=== PATIENT | female | born 1950 | race Caucasian/White ===

== ENCOUNTER 2017-01-06 18:07 | Emergency (ER) | payer OTHER ==
[~2017-01-06] VITALS: Ht 160 cm; Wt 84.4 kg
[2017-01-06 19:18] VITALS: BP 155/69
== END 2017-01-06 19:18 | disposition home or self-care (01) ==
LOC: ED 18:07
DX: S39.012A Strain of muscle, fascia and tendon of lower back, initial encounter (principal); E11.9 Type 2 diabetes mellitus without complications; I10 Essential (primary) hypertension; E78.5 Hyperlipidemia, unspecified; Z79.84 Long term (current) use of oral hypoglycemic drugs; Z79.899 Other long term (current) drug therapy; X58.XXXA Exposure to other specified factors, initial encounter; Y93.89 Activity, other specified; Y99.8 Other external cause status; Y92.89 Other specified places as the place of occurrence of the external cause
CPT/HCPCS: 20552; J2001

== ENCOUNTER 2017-09-05 20:53 | Emergency (ER) | payer OTHER ==
[~2017-09-05] VITALS: Ht 157.5 cm; Wt 83.5 kg
[2017-09-05 20:59] VITALS: Ht 157.5 cm; Wt 83.5 kg
[2017-09-05 22:56] LABS: PLATELET COUNT 341 x10^3mcL (130-400); RED CELL DISTRIBUTION WIDTH 13.1 % (11.5-14.5)
[2017-09-05 22:58] LABS: BASOPHIL % 3.9 % (0-2)
[2017-09-05 23:05] LABS: CALCIUM 8.6 mg/dL (8.5-10.1); CHLORIDE SERUM 103 mmol/L (98-107); CREATININE SERUM 0.8 mg/dL (0.6-1.0); GFR1 > 60 mL/min; GLUCOSE SERUM 132 mg/dL (74-106); SODIUM SERUM 140 mmol/L (136-145)
[2017-09-05 23:15] LABS: ALBUMIN 3.5 g/dL (3.4-5.0); ALKALINE PHOSPHATASE 82 U/L (46-116); ALT/SGPT 57 U/L (14-59); AST/SGOT 20 U/L (15-37); BILIRUBIN TOTAL 0.4 mg/dL (0.20-1.00); TOTAL PROTEIN, SERUM 7.2 g/dL (6.4-8.2)
[2017-09-05 23:21] LABS: CHOLESTEROL 210 mg/dL (<200)
[2017-09-06 02:07] VITALS: BP 140/80
== END 2017-09-06 02:07 | disposition home or self-care (01) ==
LOC: ED 20:53
PROVIDERS: Specialist
DX: S22.49XA Multiple fractures of ribs, unspecified side, initial encounter for closed fracture (principal); X58.XXXA Exposure to other specified factors, initial encounter; Y93.89 Activity, other specified; Y92.89 Other specified places as the place of occurrence of the external cause; Y99.8 Other external cause status
CPT/HCPCS: 36415; 72072; 83880; G0480; J1885; J3010; Q0162

== ENCOUNTER 2019-01-21 10:14 | Inpatient (IN) | payer OTHER ==
[~2019-01-21] VITALS: Ht 160 cm; Wt 80.7 kg
[2019-01-21 11:50] LABS: BASOPHIL % 0.3 % (0-2); PLATELET COUNT 275 x10^3mcL (130-400)
[2019-01-21 11:57] LABS: CALCIUM 8.7 mg/dL (8.5-10.1); CARBON DIOXIDE 30.7 mmol/L (21-32); CHLORIDE SERUM 102 mmol/L (98-107); CREATININE SERUM 0.8 mg/dL (0.6-1.0); GFR1 > 60 mL/min; GLUCOSE SERUM 115 mg/dL (74-106); POTASSIUM SERUM 3.6 mmol/L (3.5-5.1); SODIUM SERUM 140 mmol/L (136-145)
[2019-01-21 11:59] LABS: ALBUMIN 3.8 g/dL (3.4-5.0); ALKALINE PHOSPHATASE 97 U/L (46-116); ALT/SGPT 36 U/L (14-59); AST/SGOT 24 U/L (15-37); BILIRUBIN TOTAL 0.4 mg/dL (0.20-1.00); TOTAL PROTEIN, SERUM 7.3 g/dL (6.4-8.2)
[2019-01-21 13:11] VITALS: BP 169/74
[2019-01-21 13:17] VITALS: Ht 160 cm; Wt 80.7 kg
[2019-01-21 14:55] LABS: CHOLESTEROL/HDL RATIO 4.3; PHOSPHOROUS 3.7 mg/dL (2.5-4.9)
[2019-01-21 17:31] VITALS: BP 158/72
[2019-01-21 21:12] VITALS: BP 144/59
[2019-01-22 05:47] VITALS: BP 147/71
[2019-01-22 06:22] LABS: BASOPHIL % 0.3 % (0-2); PLATELET COUNT 283 x10^3mcL (130-400); RED CELL DISTRIBUTION WIDTH 14.1 % (11.5-14.5)
[2019-01-22 06:28] LABS: CALCIUM 8.5 mg/dL (8.5-10.1); CARBON DIOXIDE 28.1 mmol/L (21-32); CHLORIDE SERUM 101 mmol/L (98-107); CREATININE SERUM 0.7 mg/dL (0.6-1.0); GFR1 > 60 mL/min; GLUCOSE SERUM 130 mg/dL (74-106); MAGNESIUM 2.2 mg/dL (1.8-2.4); PHOSPHOROUS 3.6 mg/dL (2.5-4.9); POTASSIUM SERUM 3.4 mmol/L (3.5-5.1); SODIUM SERUM 138 mmol/L (136-145)
[2019-01-22 09:45] VITALS: BP 156/72
[2019-01-22 17:45] VITALS: BP 135/56
[2019-01-22 21:00] VITALS: BP 134/65
[2019-01-23 07:20] LABS: CALCIUM 8.4 mg/dL (8.5-10.1); CARBON DIOXIDE 23.7 mmol/L (21-32); CHLORIDE SERUM 101 mmol/L (98-107); CREATININE SERUM 0.6 mg/dL (0.6-1.0); GFR1 > 60 mL/min; GLUCOSE SERUM 124 mg/dL (74-106); MAGNESIUM 2.2 mg/dL (1.8-2.4); PHOSPHOROUS 3.1 mg/dL (2.5-4.9); SODIUM SERUM 137 mmol/L (136-145)
[2019-01-23 09:43] LABS: BASOPHIL % 1.1 % (0-2); PLATELET COUNT 260 x10^3mcL (130-400); RED CELL DISTRIBUTION WIDTH 14.3 % (11.5-14.5)
[2019-01-23 09:53] VITALS: BP 143/90
[2019-01-23 17:27] VITALS: BP 154/67
[2019-01-23 21:04] VITALS: BP 151/59
[2019-01-24 06:19] VITALS: BP 140/57
[2019-01-24 06:39] LABS: CARBON DIOXIDE 30.5 mmol/L (21-32); CHLORIDE SERUM 101 mmol/L (98-107); CREATININE SERUM 0.6 mg/dL (0.6-1.0); GFR1 > 60 mL/min; GLUCOSE SERUM 97 mg/dL (74-106); PHOSPHOROUS 3.6 mg/dL (2.5-4.9); POTASSIUM SERUM 4.2 mmol/L (3.5-5.1); SODIUM SERUM 138 mmol/L (136-145)
[2019-01-24 07:19] LABS: PLATELET COUNT 231 x10^3mcL (130-400); RED CELL DISTRIBUTION WIDTH 14.3 % (11.5-14.5)
[2019-01-24 07:20] LABS: BASOPHIL % 0.7 % (0-2)
[2019-01-24 09:27] VITALS: BP 129/54
[2019-01-24 15:19] VITALS: BP 129/54
[2019-01-24 17:08] VITALS: BP 125/50
== END 2019-01-24 19:43 | DRG 517 ==
LOC: ED 10:14 → MU 11:37
PROVIDERS: Emergency Medicine; Neuromusculoskeletal Medicine, Sports Medicine; ADMIT Family Medicine
PROC: 0QSF04Z Reposition Left Patella with Internal Fixation Device, Open Approach (ICD-10-PCS; principal; 2019-01-22 11:45)
DX: S82.042A Displaced comminuted fracture of left patella, initial encounter for closed fracture (principal); E83.51 Hypocalcemia; E87.6 Hypokalemia; E11.9 Type 2 diabetes mellitus without complications; I10 Essential (primary) hypertension; E78.5 Hyperlipidemia, unspecified; Z68.33 Body mass index [BMI] 33.0-33.9, adult; Z79.84 Long term (current) use of oral hypoglycemic drugs; W17.89XA Other fall from one level to another, initial encounter; Y93.89 Activity, other specified; Y92.015 Private garage of single-family (private) house as the place of occurrence of the external cause; W01.0XXA Fall on same level from slipping, tripping and stumbling without subsequent striking against object, initial encounter; Y92.009 Unspecified place in unspecified non-institutional (private) residence as the place of occurrence of the external cause
CPT/HCPCS: 76001; 82962; 83880; 94150; 97116-GP; 97530-GP; C1713; J0690; J1644; J2175; J2250; J2270; J2405; J2704; J3010; J3490; J7030; J7050; Q0092